=== PATIENT | male | born 1995 | race Two or more races ===

== ENCOUNTER 2019-01-27 07:40 | Emergency (ER) | payer SELFPAY ==
--- NOTE | 2019-01-27 07:58 | ER Report ---
History and Physical Time Seen By MD: 07:58 Hx. of Stated Complaint: PATIENT REPORTS THAT HE HASBEEN COUGHING AND SICK. THIS MORNING HE REPORTS THAT HE COUGHED UP SOME BLOOD. HE ALSO REPORTS TIGHT FEELING IN HIS CHEST WHEN HE COUGHS HPI/ROS Off and congestion last week and and then improved. 2-3 days ago he developed another cough as well as sore throat. Today while coughing he saw blood-tinged sputum symptoms concerning came to the emergency department. No fever chills. Thinks he may have undiagnosed asthma. Has been using an albuterol inhaler that he acquired from his uncle, and the inhaler makes his symptoms improved. He is otherwise healthy, and very pleasant. No other complaints. Denies chest pain. No PE/TB risk factors. Allergies: Coded Allergies: No Known Drug Allergies (Unverified , 01/27/19) Home Meds Active Scripts Albuterol Sulfate (PROVENTIL HFA) 6.7 Gm Inh, 1-2 PUFF INH 3-4XD for 10 Days, #1 INH 3 Refills Prov:FAY ALVAREZ MD 01/27/19 Reviewed Nurses Notes: Yes Old Medical Records Reviewed: Yes Hx Smoking: Yes Hx Substance Use Disorder: No Hx Alcohol Use: No Constitutional Vital Sign - Last 24 Hours 01/27/19 01/27/19 01/27/19 01/27/19 07:42 07:43 08:00 08:10 Temp 97.9 Pulse 101 93 Resp 24 B/P (MAP) 135/84 (101) 135/84 133/79 (97) Pulse Ox 92 95 O2 Delivery Room Air 01/27/19 01/27/19 01/27/19 08:30 08:40 08:45 Pulse 90 95 B/P (MAP) 133/89 (104) Pulse Ox 94 93 Physical Exam General Appearance: The patient is alert, has no immediate need for airway protection and no current signs of toxicity. Eyes: Pupils equal and round no injection. Respiratory: Chest is non tender, lungs are clear to auscultation. Cardiac: regular rate and rhythm Skin: No rashes or lesions. DIFFERENTIAL DIAGNOSIS: After history and physical exam differential diagnosis was considered for shortness of breath including but not limited to pulmonary infectious process, COPD, asthma, pulmonary embolus and congestive heart failure. Medical Decision Making Data Points Laboratory Hematology Test 01/27/19 00:00 Group A Streptococcus (PCR) Negative (NEGATIVE) Chemistry Test 01/27/19 00:00 Group A Streptococcus (PCR) Negative (NEGATIVE) ED Course/Re-evaluation ED Course Chest x-ray with no acute findings. Rapid strep negative. The patient appears well and is comfortable. Counseled him that this is likely a viral URI. I told him that he likely has blood-tinged sputum secondary to having a cough for more than a week. He was a daily smoker, that decided to quit smoking last week then he had the 1st episode of a URI. I told him that he definitely should not go back to smoking cigarettes. I told him he may have underlying mild an undiagnosed asthma and smoking is going to exacerbate that. He voiced agreement. He received Decadron in the emergency department as well as a prescription for an albuterol inhaler. Decision to Disposition Date: Jan 27, 2019 Decision to Disposition Time: 08:48 Depart Departure Latest Vital Signs Vital Signs Date Time Temp Pulse Resp B/P (MAP) Pulse Ox O2 Delivery O2 Flow Rate FiO2 01/27/19 08:45 95 93 01/27/19 08:30 133/89 (104) 01/27/19 07:43 97.9 24 Room Air Impression: Primary Impression: URI, acute Condition: Improved Disposition: HOME OR SELF-CARE New Scripts Albuterol Sulfate (PROVENTIL HFA) 6.7 Gm Inh 1-2 PUFF INH 3-4XD for 10 Days, #1 INH 3 Refills Prov: FAY ALVAREZ MD 01/27/19 Patient Instructions: Upper Respiratory Infection (ED) FAY ALVAREZ MD Jan 27, 2019 07:58
[2019-01-27] MEDS ORDERED: DEXAMETHASONE 4 MG TAB PO ONE (08:25)
[2019-01-27 08:30] VITALS: BP 133/89
--- NOTE | 2019-01-27 08:43 | RADIOLOGY IMAGING REPORT ---
FACILITY: [facility] PATIENT NAME: Andrea Osuna : 1995 MR: [id number] V: [id number] EXAM DATE: ORDERING PHYSICIAN: FAY ALVAREZ TECHNOLOGIST: Location: [facility] Patient: Andrea Osuna : 1995 Visit/Account:[id number] Date of Sevice: 01/27/2019 2 VIEWS CHEST INDICATION: Cough and fever COMPARISON: None available FINDINGS: Heart size within normal limits. Lungs are clear. Bones are without acute finding. There is no pneumothorax or pleural effusion. IMPRESSION: 1. No acute cardiopulmonary process. Report Dictated By: Destin Frye MD at 01/27/2019 8:37 AM Report E-Signed By: Destin Frye MD at 01/27/2019 8:37 AM WSN:[id number]
[2019-01-27] MEDS ORDERED: ALB6.7R INH (08:52)
== END 2019-01-27 09:11 | disposition home or self-care (01) ==
LOC: ER 08:03
DX: J06.9 Acute upper respiratory infection, unspecified (principal)
CPT/HCPCS: 71046; 87653; 99283; J8540